=== PATIENT | male | born 2000 | race Two or more races ===

== ENCOUNTER 2025-05-06 18:07 | Emergency (ER) | payer MEDICAID ==
[~2025-05-06] VITALS: Ht 157.5 cm; Wt 64.4 kg
[2025-05-06 18:08] VITALS: BP 128/69
[2025-05-06] MEDS ORDERED: HYDROMORPHONE 1 MG/1 ML DISP.SYRIN ONE (18:40)
[2025-05-06] MEDS ORDERED: KETOROLAC TROMETHAMINE 15 MG INJ ONE (18:40)
[2025-05-06] MEDS ORDERED: ONDANSETRON 4 MG/2 ML VIAL ONE (18:40)
[2025-05-06 18:49] LABS: PLATELET COUNT (AUTO) 252 K/uL (152-348); RED BLOOD CELL COUNT(AUTO) 4.91 MIL/uL (4.06-5.63); RED CELL DISTRIBUTION WIDTH 12.6 % (12.1-16.2); WHITE BLOOD COUNT (AUTO) 12.3 K/uL (3.6-10.2)
[2025-05-06] MEDS: ONDANSETRON 4 MG/2 ML VIAL IV ONE (18:52)
[2025-05-06] MEDS: IV NORMAL SALINE 1000 ML BAG IV ONE (18:52)
[2025-05-06] MEDS: HYDROMORPHONE 1 MG/1 ML DISP.SYRIN IV ONE (18:52)
[2025-05-06] MEDS: KETOROLAC TROMETHAMINE 15 MG INJ IVP ONE (18:53)
[2025-05-06] MEDS ORDERED: IV NORMAL SALINE 250 ML IV ONE (19:20)
[2025-05-06] MEDS ORDERED: IOHEXOL 300MG/ML 100 ML INFUS..BTL ONE (19:20)
[2025-05-06] MEDS ORDERED: SWABABLE VALVE TRANSFER SET EA MC ONE (19:20)
[2025-05-06 19:25] LABS: *BILIRUBIN,URIN NEGATIVE (NEGATIVE); *BLOOD, URINE 3+ (NEGATIVE); *CLARITY,URINE CLEAR (CLEAR); *COLOR,URINE YELLOW (YELLOW); *KETONES,URINE TRACE (NEGATIVE); *PROTEIN,URINE TRACE (NEGATIVE); *UROBILINOGEN,URINE 0.2 E.U./dl (NORMAL); LEUKOCYTE ESTERASE ,URINE NEGATIVE (NEGATIVE); NITRITE, URINE NEGATIVE (NEGATIVE); UGLUCOSE NEGATIVE (NEGATIVE)
[2025-05-06 19:28] LABS: CREATININE 1.1 mg/dL (0.6-1.3); SODIUM SERUM 138.0 mmol/L (136-145); UREA NITROGEN, BLOOD 19.0 mg/dL (7-18)
[2025-05-06 19:34] LABS: ASPARTATE AMINOTRANSFERASE 35.0 U/L (15-37); TOTAL PROTEIN, SERUM 8.0 g/dL (6.4-8.2)
[2025-05-06] MEDS ORDERED: KETOROLAC TROMETHAMINE 30 MG INJ ONE (20:30)
[2025-05-06] MEDS ORDERED: HYDR-3980 PO (20:31)
[2025-05-06] MEDS ORDERED: ONDA-243 PO (20:31)
[2025-05-06] MEDS: KETOROLAC TROMETHAMINE 30 MG INJ IVP ONE (20:32)
[2025-05-06 20:41] VITALS: BP 128/69; O2SAT 99
== END 2025-05-06 20:41 | disposition home or self-care (01) ==
LOC: ER 18:07
DX: N20.2 Calculus of kidney with calculus of ureter (principal); K76.0 Fatty (change of) liver, not elsewhere classified
CPT/HCPCS: 99285; 74177; 96374; 96361; 96375; 80076; 80048; 81001; 83690; 85025; 36415; 96376; J1885 ×2; J2405; Q9967; J1171; J7040; A4606; A4663